=== PATIENT | male | born 1955 | race Caucasian/White ===

== ENCOUNTER 2017-05-04 23:00 | Emergency (ER) | payer MEDICAID ==
[~2017-05-04] VITALS: Ht 180.3 cm; Wt 119.8 kg
[~2017-05-04 23:00] MED LIST: ALLO100T30 PO; GABA-826 PO; HYDR-3237 PO; INSU100I28 SQ-INSULIN; METF500T4 PO; METH4TAB2 PO
[2017-05-04 23:02] VITALS: BP 158/95
== END 2017-05-04 23:47 | disposition home or self-care (01) ==
LOC: ED 23:45
DX: Z76.0 Encounter for issue of repeat prescription (principal); G89.29 Other chronic pain; M54.9 Dorsalgia, unspecified; I25.2 Old myocardial infarction; E11.40 Type 2 diabetes mellitus with diabetic neuropathy, unspecified; E87.1 Hypo-osmolality and hyponatremia
CPT/HCPCS: 99283

== ENCOUNTER 2017-06-11 23:53 | Emergency (ER) | payer MEDICAID ==
[~2017-06-11] VITALS: Ht 180.3 cm; Wt 123.8 kg
[~2017-06-11 23:53] MED LIST changes: +METH500T97 PO; +OXYC-307 PO; +PRED10TA PO
[2017-06-12 00:01] VITALS: BP 173/109
[2017-06-12] MEDS ORDERED: IBUP-1223 PO (00:58)
[2017-06-12] MEDS ORDERED: GABA300C10 PO (00:58)
[2017-06-12] MEDS ORDERED: OXYcodone/APAP 5/325MG TABLET PO ONE (01:00)
[2017-06-12] MEDS ORDERED: OXYcodone/APAP 5/325MG TABLET ONE (01:09)
== END 2017-06-12 01:24 | disposition home or self-care (01) ==
LOC: ED 06-12 00:52
DX: G89.29 Other chronic pain (principal); M79.604 Pain in right leg; M79.605 Pain in left leg; Z76.0 Encounter for issue of repeat prescription; E11.40 Type 2 diabetes mellitus with diabetic neuropathy, unspecified
CPT/HCPCS: 99281

== ENCOUNTER 2017-06-13 06:02 | Emergency (ER) | payer MEDICAID ==
[~2017-06-13] VITALS: Ht 182.9 cm; Wt 125.4 kg
[~2017-06-13 06:02] MED LIST changes: +GABA300C10 PO; +IBUP-1223 PO
[2017-06-13 06:11] VITALS: BP 144/89
[2017-06-13] MEDS ORDERED: OXYcodone/APAP 5/325MG TABLET ONE (09:09)
[2017-06-13] MEDS ORDERED: OXYcodone/APAP 5/325MG TABLET PO ONE (09:30)
== END 2017-06-13 09:38 | disposition home or self-care (01) ==
LOC: ED 09:15
DX: F11.23 Opioid dependence with withdrawal (principal); I10 Essential (primary) hypertension; I25.2 Old myocardial infarction; E87.1 Hypo-osmolality and hyponatremia; E11.42 Type 2 diabetes mellitus with diabetic polyneuropathy
CPT/HCPCS: 99282

== ENCOUNTER 2017-08-05 19:16 | Emergency (ER) | payer MEDICAID ==
[~2017-08-05] VITALS: Ht 180.3 cm; Wt 123.0 kg
[2017-08-05 19:19] VITALS: BP 166/99
[2017-08-05] MEDS ORDERED: OXYcodone/APAP 10/325MG TABLET ONE (20:27)
[2017-08-05] MEDS ORDERED: OXYcodone/APAP 10/325MG TABLET PO ONE (20:30)
== END 2017-08-05 20:40 | disposition home or self-care (01) ==
LOC: ED 20:34
DX: E11.40 Type 2 diabetes mellitus with diabetic neuropathy, unspecified (principal); I10 Essential (primary) hypertension
CPT/HCPCS: 99282

== ENCOUNTER 2017-08-07 02:07 | Emergency (ER) | payer MEDICAID ==
[~2017-08-07] VITALS: Ht 180.3 cm; Wt 122.5 kg
[2017-08-07 02:12] VITALS: BP 151/94
== END 2017-08-07 04:32 | disposition left against medical advice (07) ==
LOC: ED 04:26
DX: M79.604 Pain in right leg (principal); G62.9 Polyneuropathy, unspecified; Z53.21 Procedure and treatment not carried out due to patient leaving prior to being seen by health care provider

== ENCOUNTER 2017-08-26 00:40 | Emergency (ER) | payer MEDICAID ==
[~2017-08-26] VITALS: Ht 180.3 cm; Wt 126.1 kg
[2017-08-26 00:41] VITALS: BP 176/90
[2017-08-26] MEDS ORDERED: OXYcodone/APAP 10/325MG TABLET PO ONE (02:00)
[2017-08-26] MEDS ORDERED: OXYcodone/APAP 10/325MG TABLET ONE (02:01)
== END 2017-08-26 02:07 | disposition home or self-care (01) ==
LOC: ED 01:41
DX: G62.9 Polyneuropathy, unspecified (principal); G89.29 Other chronic pain; M79.671 Pain in right foot; I10 Essential (primary) hypertension
CPT/HCPCS: 99282

== ENCOUNTER 2018-05-20 14:17 | Emergency (ER) | payer MEDICAID, MEDICARE ==
[~2018-05-20] VITALS: Ht 180.3 cm; Wt 123.0 kg
[~2018-05-20 14:17] MED LIST changes: +METF500T17 PO; -METF500T4 PO
[2018-05-20 14:18] VITALS: BP 157/85
== END 2018-05-20 15:20 | disposition home or self-care (01) ==
LOC: ED 15:00
DX: M06.812 Other specified rheumatoid arthritis, left shoulder (principal); M06.832 Other specified rheumatoid arthritis, left wrist; E11.9 Type 2 diabetes mellitus without complications; I10 Essential (primary) hypertension
CPT/HCPCS: 99283; J7512